=== PATIENT | female | born 1990 | race Caucasian/White ===

== ENCOUNTER → 2017-04-21 | Outpatient (CLI) | payer BC, OTHER | END | disposition home or self-care (01) | LOC: C.LABMFLN 12:15 | PROVIDERS: ATTEND Family Medicine | DX: J02.9 Acute pharyngitis, unspecified (principal) ==

== ENCOUNTER → 2017-06-20 | Outpatient (CLI) | payer OTHER ==
--- NOTE | 2017-06-20 13:56 | DIAGNOSTIC IMAGING REPORT ---
CHEST 2 VIEWS ROUTINE CLINICAL HISTORY: Costochondritis. Right anterior mid rib pain. No trauma. COMPARISON STUDY: No previous studies for comparison. FINDINGS: No pneumothorax or pleural effusion is noted. Cardiac size is normal. Mediastinal contours are normal. Lungs are clear. Pulmonary vascularity is normal. IMPRESSION: No acute cardiopulmonary findings. Electronically signed by: Cj Goldman M.D. 06/20/2017 1:55 PM Dictated Date/Time: 06/20/2017 1:54 PM
--- NOTE | 2017-06-20 13:58 | DIAGNOSTIC IMAGING REPORT ---
R RIBS UNILATERAL MIN 2 VIEWS CLINICAL HISTORY: RIGHT SIDE RIB PAIN COMPARISON STUDY: No previous studies for comparison. FINDINGS: No acute right rib fractures are identified. There is no right pneumothorax. Right lung is clear. IMPRESSION: No acute right rib fractures identified. Electronically signed by: Cj Goldman M.D. 06/20/2017 1:56 PM Dictated Date/Time: 06/20/2017 1:55 PM
== END | disposition home or self-care (01) ==
LOC: C.RAD 12:53
PROVIDERS: ATTEND Physician Assistant
DX: M94.0 Chondrocostal junction syndrome [Tietze] (principal)

== ENCOUNTER 2022-12-12 03:03 | Inpatient (IN) ==
[2022-12-12] MEDS ORDERED: PENICILLIN G POTASSIUM 6 MU in DEXTROSE 5% 250 ML IV STA (03:53)
[2022-12-12] MEDS ORDERED: OXYTOCIN 30 UNITS/500 ML BAG IV PRN ×2 (03:53→06:49)
[2022-12-12] MEDS ORDERED: LIDOCAINE 1% LOCAL 20 ML VIAL INFIL PRN (03:53)
--- NOTE | 2022-12-12 03:56 | History & Physical Report ---
Date of Service December 12, 2022 Assessment & Plan (1) with 38 completed weeks gestation: (2) GBS (group B Streptococcus carrier), +RV culture, currently : (3) PROM (premature rupture of membranes): Plan admit. treat for gbs. patient desires initial expectant management and is renetta. discussed need for augmentation if not making change at 6 hours s/p srom given gbs positive. She expresses understanding. Epidural on demand. fetus category one. anticipate . History of Present Illness Chief Complaint: lof Primary Care Provider: Gail Nath DO Patient is a 32yowf G1 at 38 6/7 weeks who comes in c/o lof. Notes a large gush of clear fluid at 1:30. she noted a copious amount of a more mucousy d/c at 7pm yesterday. no vb. +fm. Feels period like cramps. and Delivery Plans L ovarian cyst on anatomy - Endometrioma -f/u 4 wks, stable, recheck at 32wks OB Labs: Blood Type A Positive 05/22/22 Antibody Screen NEGATIVE 05/22/22 Hemoglobin 11.6 g/dl (12.0-16.0) L 09/29/22 Hematocrit 33.8 % (37.0-47.0) L 09/29/22 Mean Corpuscular Volume 85.1 fL (80.0-100.0) 05/22/22 Platelet Count 198 K/uL (130-400) 05/22/22 Rubella IgG Antibody Immune (Immune) 05/22/22 Rapid Plasma Reagin Nonreactive (Nonreactive) 05/22/22 Hepatitis B Surface Antigen. NON-REACTIVE (NON-REACTIVE) 05/22/22 Hepatitis C Antibody (EIA) NON-REACTIVE (NON-REACTIVE) 05/22/22 HIV (1&2) Ag and Ab Confirmation NON-REACTIVE (NON-REACTIVE) 05/22/22 Glucose 1 Hour 50 gm Load 127 mg/dl (70-130) 09/22/22 OB Optional Labs: Chlamydia trachomatis RNA Not Detected (NotDetected) 05/22/22 Neisseria gonorrhoeae RNA Not Detected (NotDetected) 05/22/22 Labs Reviewed: declines genetics/cf/sma--akh declines msafp/quad--smp gbs positive Allergies Allergy/AdvReac Type Severity Reaction Status Date / Time horse dander Allergy Unknown CONGESTION, Verified 12/12/22 03:58 THROAT CLOSES No Known Drug Allergies Allergy . Verified 12/12/22 03:58 Home Medications Medication Instructions Recorded Confirmed Type albuterol sulfate 90 mcg/actuation 2 puff inhalation Q6H PRN 12/17/18 12/09/22 History aerosol inhaler Shortness Of Breath Or Wheezing cholecalciferol (vitamin D3) 25 25 mcg PO DAILY 07/20/20 12/09/22 History mcg (1,000 unit) tablet (Vitamin D3) prenat.vits,tammy,ahm-owcy-ohsux 1 tab PO DAILY 05/05/22 12/09/22 History Patient History Medical History (Updated 12/12/22 @ 04:00 by Carmel Baeza MD, FACOG) Anxiety Asthma Cardiac arrhythmia Palpitations- last seen by cardio 2016- sxs had improved - pt to follow up PRN Complex ovarian cyst Depression Endometrioma of ovary History of chicken pox IUD contraception Low-lying placenta Migraine HX Surgical History H/O ovarian cystectomy S/P tooth extraction Family History Grandfather (Maternal) Colorectal cancer diagnosed in late 60s Cardiac disease Diabetes Hypertension Myocardial infarction History of open heart surgery Grandmother (Maternal) Diabetes Hypertension Lung cancer Mother Mitral valve prolapse Denies family history of Ovarian cancer Breast cancer Social History Smoking Status: Never smoker Second Hand Exposure: No; Do You Dip or Chew Tobacco: No; Hx Alcohol Use: No Hx Substance Use: No Preferred Language: Israeli Communication Ability: Effective Lion Tamer Required: No Beliefs That Will Affect Care: None marital status: marital status details: Kamar Reyes (31) [phone] Current Living Situation: Spouse Current Living Situation Comment: lives with spouse, no pets current occupational status: employed 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 Other Information That Helps Us Care for You: No Feels Safe at Home: Yes Safety Concerns: Feels Safe At This Time Childhood Exposure to Second-Hand Smoke: No caffeine: Yes Dental Care, Regularly: Yes Physical Activity Frequency: 1-2 Times per Week Seatbelt Use: always Sunscreen Use: Yes Assistive Devices: Contacts and Glasses OB History g1--present THREADING [employer] History noncontributory Physical Exam 2 Constitutional: WD/WN, vitals as above Gastrointestinal (Abdomen): soft, gravid, nt Psychiatric: A+Ox3, euthymic affect Genitourinary: sse--yeast d/c noted, trickle of fluid from the os, small pool, +nitrazine, no fern sve--/50/-2/post toco--4-6min efm--140s with mod variability, accels to 160s, no decels Results & Data Vital Signs (Past 12 Hours) Vital Signs Temp Pulse Resp BP 12/12/22 03:19 18 12/12/22 03:19 36.9 C 18 12/12/22 03:20 85 122/86 Coding Level of Care Code None Diagnoses with 38 completed weeks gestation Z3A.38 GBS (group B Streptococcus carrier), +RV culture, currently O99.820 PROM (premature rupture of membranes) O42.90
[2022-12-12] MEDS: LACTATED RINGER'S 1,000 ML IV PRN ×2 (04:10→15:03)
--- NOTE | 2022-12-12 06:51 | Communication Note ---
Date of Service: December 12, 2022 Patient walking and notes some cramping but nothing exciting. Nursing notes irregular , mild contractions. Will start pitocin. Fetus category one.
[2022-12-12] MEDS: PENICILLIN G POTASSIUM 3 MU in DEXTROSE 5% 100 ML IV PRN ×4 (08:24→21:23)
[2022-12-12 09:18] LABS: Hematocrit (blood only) 36.6 % (37.0-47.0); Mean Corpuscular Hemoglobin 30.9 pg (25.0-34.0); Mean Corpuscular Hgb Conc 35.5 g/dL (32.0-36.0); Mean Corpuscular Volume 86.9 fL (80.0-100.0); RDW Coefficient of Variation 13.3 % (11.5-14.5); RDW Standard Deviation 41.8 fL (36.4-46.3); Red Blood Count 4.21 M/uL (4.20-5.40); White Blood Count 11.06 K/ul (4.8-10.8)
[2022-12-12 09:20] LABS: Mean Platelet Volume 10.7 fL (9.4-12.4); Platelet Count 131 K/uL (130-400)
[2022-12-12] MEDS ORDERED: ePHEDrine sulfate 50 MG/ML AMP ONE (14:10)
[2022-12-12] MEDS ORDERED: BUPIVACAINE 0.25% PF 30 ML VIAL ONE (14:10)
[2022-12-12] MEDS ORDERED: LIDOCAINE 2%/EPINEPHRINE 1:200,000 20 ML PF ONE (14:10)
[2022-12-12] MEDS ORDERED: SODIUM CHLORIDE 0.9% PF INJ 10 ML VIAL ONE (14:10)
[2022-12-12] MEDS ORDERED: fentaNYL citrate PF 100 MCG/2 ML VIAL ONE (14:10)
[2022-12-12] MEDS ORDERED: fentaNYL 2MCG/ML ROPIVACAINE 1.25MG/ML 100 ML BAG EPI ONE (14:11)
[2022-12-12] MEDS ORDERED: ONDANSETRON INJ 2 MG/ML 2 ML VIAL IV PRN (14:52)
[2022-12-12] MEDS ORDERED: NALOXONE HCL 0.4 MG/1 ML VIAL/CARP IV PRN (14:52)
[2022-12-12] MEDS ORDERED: fentaNYL citrate PF 100 MCG/2 ML VIAL EPI PRN (14:52)
[2022-12-12] MEDS ORDERED: BUPIVACAINE 0.25% PF 30 ML VIAL EPI PRN (14:52)
[2022-12-12] MEDS ORDERED: SODIUM CHLORIDE 0.9% PF INJ 10 ML VIAL EPI STA (14:52)
[2022-12-12] MEDS ORDERED: ROPIVACAINE 0.5% PF 5 MG/ML 20 ML VIAL EPI PRN (14:52)
[2022-12-12] MEDS ORDERED: SODIUM CHLORIDE 0.9% PF INJ 10 ML VIAL EPI PRN (14:52)
[2022-12-12] MEDS ORDERED: LIDOCAINE 2% MPF LOCAL 5 ML VIAL EPI PRN (14:52)
[2022-12-12] MEDS ORDERED: LIDOCAINE 2%/EPINEPHRINE 1:200,000 20 ML PF EPI STA (14:52)
[2022-12-12] MEDS ORDERED: fentaNYL citrate PF 100 MCG/2 ML VIAL EPI STA (14:52)
[2022-12-12] MEDS ORDERED: BUPIVACAINE 0.25% PF 30 ML VIAL EPI STA (14:52)
[2022-12-12] MEDS ORDERED: NALOXONE HCL 1 MG in SODIUM CHLORIDE 0.9% 1000ML 1,000 ML IV PRN (14:52)
[2022-12-12] MEDS ORDERED: ePHEDrine sulfate 50 MG/ML AMP IV PRN (14:52)
[2022-12-12] MEDS ORDERED: diphenhydrAMINE 50 MG/ML VIAL IV PRN (14:52)
[2022-12-12] MEDS ORDERED: NALBUPHINE HCL INJ 10 MG/ML AMP IV PRN (14:52)
--- NOTE | 2022-12-12 14:53 | Anesthesiology Consultation ---
Date of Service December 12, 2022 Assessment & Plan Chart Review Chart Review: Patient NOT seen in Pre Admission Testing and Acceptable Risk for Labor Epidural Consults Requested none ASA ASA2 Proposed Anesthesia Anesthesia Type: Labor Epidural Risk / Benefits Reviewed With: PT / POA / Parent / Guardian, Accepts Plan and Informed Consent Obtained History Height/Weight Height: 5 ft 5 in Weight: 74.843 kg Allergies Allergy/AdvReac Type Severity Reaction Status Date / Time horse dander Allergy Unknown CONGESTION, Verified 12/12/22 03:58 THROAT CLOSES No Known Drug Allergies Allergy . Verified 12/12/22 03:58 Medications Home Medications Medication Instructions Recorded Confirmed Last Taken albuterol sulfate 90 mcg/actuation 2 puff inhalation Q6H PRN 12/17/18 12/09/22 Unknown aerosol inhaler Shortness Of Breath Or Wheezing cholecalciferol (vitamin D3) 25 25 mcg PO DAILY 07/20/20 12/09/22 3 Days Ago mcg (1,000 unit) tablet (Vitamin ~07/17/20 D3) prenat.vits,tammy,xtm-oqid-xlnxp 1 tab PO DAILY 05/05/22 12/09/22 12/08/22 12:00 Active Medications Generic Name Dose Route Start Last Admin Trade Name Freq PRN Reason Stop Dose Admin Lactated Ringer's 1,000 mls @ 125 mls/hr 12/12/22 03:53 12/12/22 08:25 Lr IV 12/14/22 03:52 125 mls/hr .Q8H PRN Infusion L&D Protocol Protocol Penicillin G Potassium 3 mu/ 106 mls @ 100 mls/hr 12/12/22 06:54 12/12/22 13:05 Dextrose IV 12/22/22 06:53 100 mls/hr Q4H PRN Administration GBS(+) Until Delivery Oxytocin 30 units in 500 mls @ 10 mls/hr 12/12/22 06:49 12/12/22 10:30 Pitocin IV 12/14/22 06:48 0.6 units/hr .Q24H PRN 10 mls/hr Labor Induction/Augmentation Titration Protocol 0.6 UNITS/HR Past Medical History Medical History (Updated 12/12/22 @ 04:00 by Carmel Baeza MD, FACOG) Anxiety Asthma Cardiac arrhythmia Palpitations- last seen by cardio 2017- sxs had improved - pt to follow up PRN Complex ovarian cyst Depression Endometrioma of ovary History of chicken pox IUD contraception Low-lying placenta Migraine HX Exercise / Class Metabolic Activity II 4-5 Yardwork/Stairs/Walk up hill Past Family History Family History Grandfather (Maternal) Colorectal cancer diagnosed in late 60s Cardiac disease Diabetes Hypertension Myocardial infarction History of open heart surgery Grandmother (Maternal) Diabetes Hypertension Lung cancer Mother Mitral valve prolapse Denies family history of Ovarian cancer Breast cancer Past Surgical History Surgical History H/O ovarian cystectomy S/P tooth extraction Past Anesthesia History No Hx of Anesthesia Complications and No Family Hx of Anesthesia Complications History of PONV No Hx of PONV and No Hx of Motion Sickness Social History Smoking Status: Never smoker Do You Dip or Chew Tobacco: No Hx Alcohol Use: No Alcohol type: wine alcohol intake frequency: a few times a month Hx Substance Use: No Physical Exam Vital Signs Last Vital Signs Temp 36.5 C 12/12/22 13:36 Pulse 83 12/12/22 14:37 Resp 20 12/12/22 13:36 BP 124/79 12/12/22 14:37 ENMT Mouth: no dentition abnormality Thyromental Distance: > or= 3.5 Finger Breadths Mallampati Class: II Neck normal visual inspection Respiratory normal respiratory effort Auscultation: lungs clear to auscultation bilaterally Cardiovascular Rate/Rhythm: regular rate and regular rhythm Psychiatric Orientation: alert Testing Laboratory Results 12/12/22 04:55
[2022-12-12] MEDS: fentaNYL 2MCG/ML ROPIVACAINE 1.25MG/ML 100 ML BAG EPI PRN (23:13)
[2022-12-13] MEDS: PENICILLIN G POTASSIUM 3 MU in DEXTROSE 5% 100 ML IV PRN ×4 (00:37→12:46)
[2022-12-13] MEDS: LACTATED RINGER'S 1,000 ML IV PRN ×2 (00:38→06:48)
[2022-12-13] MEDS: fentaNYL 2MCG/ML ROPIVACAINE 1.25MG/ML 100 ML BAG EPI PRN ×2 (06:20→11:31)
--- NOTE | 2022-12-13 07:24 | Labor Progress Brief Note ---
Date of Service December 13, 2022 Subjective Patient continued slow but steady change overnight. Comfortable with epidural. Ongoing LOF. Desires continuation of augmentation/labor process. Assessment & Plan (1) PROM (premature rupture of membranes): Plan: Discussed placement of IUPC and increase of pitocin ceiling, vs continued augmentation at max level of 20mu/min. She is making change (albeit slow) and would prefer to continue without IUPC for now. Could also consider a pitocin holiday to desaturate receptors; approaching 24 hours of pitocin within the next few hours. Admission and Anticipated Discharge Date Admission Date: December 12, 2022 Physical Exam Genitourinary: /0, vertex No significant cervical or labial edema, pelvis feels adequate Pit @ 20 LOF continues, clear FHT Cat 1 [place] Q2-3. Results & Data Vital Signs (Past 12 Hours) Vital Signs Temp Pulse Resp BP Pulse Ox 12/13/22 07:17 77 118/80 99 12/13/22 07:12 78 97 12/13/22 07:07 78 99 12/13/22 07:02 82 113/67 97 12/13/22 06:57 69 98 12/13/22 06:52 74 97 12/13/22 06:47 74 98 12/13/22 06:46 76 108/68 12/13/22 06:42 83 98 12/13/22 06:37 88 98 12/13/22 06:32 80 99 12/13/22 06:31 78 123/80 12/13/22 06:16 18 12/13/22 06:16 98.2 F 18 12/13/22 06:27 80 99 12/13/22 06:22 80 98 12/13/22 06:17 99 12/13/22 06:17 76 12/13/22 06:17 82 121/79 12/13/22 06:12 73 98 12/13/22 06:07 78 98 12/13/22 06:02 76 99 12/13/22 06:03 76 117/80 12/13/22 05:57 91 H 98 12/13/22 05:52 77 98 12/13/22 05:47 70 98 12/13/22 05:46 76 127/75 12/13/22 05:42 70 99 12/13/22 05:37 79 100 12/13/22 05:32 100 12/13/22 05:32 76 07 05:32 75 107/66 12/13/22 05:27 89 100 12/13/22 05:22 82 100 12/13/22 05:17 105 H 116/66 98 12/13/22 05:12 91 H 99 12/13/22 05:07 77 98 12/13/22 05:02 81 98 12/13/22 05:01 85 108/67 12/13/22 04:57 89 97 12/13/22 04:52 68 95 12/13/22 04:47 68 96 12/13/22 04:46 67 101/58 L 12/13/22 04:42 82 97 12/13/22 04:37 74 98 12/13/22 04:32 79 96 12/13/22 04:33 84 114/68 12/13/22 04:27 98.1 F 80 16 98 12/13/22 04:22 86 98 12/13/22 04:17 78 97 12/13/22 04:16 74 110/65 12/13/22 04:12 76 97 12/13/22 04:07 67 97 12/13/22 04:02 72 97 12/13/22 04:01 67 103/64 12/13/22 02:35 18 12/13/22 02:35 98.2 F 18 12/13/22 03:57 69 97 12/13/22 03:52 74 98 12/13/22 03:47 85 98 12/13/22 03:46 68 100/66 12/13/22 03:42 90 98 12/13/22 03:37 78 97 12/13/22 03:32 98 12/13/22 03:32 81 12/13/22 03:32 78 113/67 12/13/22 03:27 71 97 12/13/22 03:22 72 98 12/13/22 03:17 85 99 12/13/22 03:16 75 106/65 12/13/22 03:12 73 98 12/13/22 03:07 85 98 12/13/22 03:02 96 H 98 12/13/22 03:01 94 H 128/80 12/13/22 02:57 96 H 98 12/13/22 02:52 88 97 12/13/22 02:47 89 98 12/13/22 02:46 89 109/76 12/13/22 02:42 97 H 98 12/13/22 02:35 18 12/13/22 02:35 98.2 F 18 12/13/22 02:37 94 H 97 12/13/22 02:32 92 H 136/77 97 12/13/22 02:27 87 97 12/13/22 02:22 98 H 96 12/13/22 02:17 80 96 12/13/22 02:16 76 104/55 L 12/13/22 02:12 78 96 12/13/22 02:07 87 97 12/13/22 02:02 73 108/57 L 96 12/13/22 01:57 82 97 12/13/22 01:52 75 96 12/13/22 01:47 74 96 12/13/22 01:48 72 104/59 L 12/13/22 01:42 80 97 12/13/22 01:37 101 H 98 12/13/22 01:32 89 98 12/13/22 01:31 84 106/60 12/13/22 01:27 96 H 97 12/13/22 01:22 91 H 96 12/13/22 01:17 85 96 12/13/22 01:16 92 H 97/57 L 12/13/22 01:12 83 94 12/13/22 01:07 85 96 12/13/22 01:02 77 96 12/13/22 01:01 84 100/60 94 12/13/22 00:57 96 H 97 12/13/22 00:52 87 97 12/13/22 00:36 18 12/13/22 00:36 98.6 F 18 12/13/22 00:47 84 97 12/13/22 00:46 85 94/58 L 12/13/22 00:42 83 97 12/13/22 00:37 82 98 12/13/22 00:32 87 96 12/13/22 00:33 85 97/61 L 12/13/22 00:27 71 97 12/13/22 00:22 75 96 12/13/22 00:17 76 97 12/13/22 00:16 87 108/61 12/13/22 00:12 76 97 12/13/22 00:07 77 97 12/13/22 00:02 83 96 12/13/22 00:01 91 H 108/62 12/12/22 23:57 87 97 12/12/22 23:52 94 H 98 12/12/22 23:47 74 96 12/12/22 23:46 82 102/59 L 12/12/22 23:42 79 96 12/12/22 23:37 81 97 12/12/22 23:32 96 12/12/22 23:32 76 12/12/22 23:32 78 106/56 L 12/12/22 23:27 71 97 12/12/22 23:22 77 97 12/12/22 23:17 79 97 12/12/22 23:16 77 106/60 12/12/22 23:12 77 96 12/12/22 23:07 80 96 12/12/22 23:02 81 97 12/12/22 22:59 18 12/12/22 22:59 98.2 F 18 12/12/22 23:01 81 110/60 12/12/22 22:57 79 96 12/12/22 22:52 90 96 12/12/22 22:47 90 120/70 97 12/12/22 22:42 99 H 97 12/12/22 22:37 88 97 12/12/22 22:32 88 97 12/12/22 22:31 100 H 112/78 12/12/22 22:27 104 H 97 12/12/22 22:22 98 H 97 12/12/22 22:17 95 H 97 12/12/22 22:16 81 16 106/62 12/12/22 22:12 92 H 97 12/12/22 22:07 92 H 96 12/12/22 22:02 97 H 96 12/12/22 22:01 91 H 104/55 L 94 12/12/22 21:57 97 H 96 12/12/22 21:52 92 H 97 12/12/22 21:47 91 H 98 12/12/22 21:46 86 102/59 L 12/12/22 21:42 92 H 97 12/12/22 21:37 86 97 12/12/22 21:32 85 97 12/12/22 21:31 93 H 106/56 L 12/12/22 21:27 90 97 12/12/22 21:22 92 H 98 12/12/22 21:17 98 12/12/22 21:17 87 12/12/22 21:17 87 101/59 L 12/12/22 21:12 87 98 12/12/22 21:03 18 12/12/22 21:03 98.2 F 18 12/12/22 21:07 95 H 97 12/12/22 21:02 90 97 12/12/22 21:01 86 96/55 L 12/12/22 20:57 78 97 12/12/22 20:52 85 97 12/12/22 20:47 78 97 12/12/22 20:46 75 101/59 L 12/12/22 20:42 75 98 12/12/22 20:37 70 96 12/12/22 20:32 82 97 12/12/22 20:31 71 99/58 L 12/12/22 20:27 79 98 12/12/22 20:22 75 97 12/12/22 20:17 73 97 12/12/22 20:16 71 98/57 L 12/12/22 20:12 87 97 12/12/22 20:07 82 97 12/12/22 20:02 85 98 12/12/22 20:01 90 104/62 12/12/22 19:57 87 97 12/12/22 19:52 90 96 12/12/22 19:47 83 100/58 L 97 12/12/22 19:42 86 98 12/12/22 19:37 82 98 12/12/22 19:32 98 12/12/22 19:32 86 12/12/22 19:32 84 102/61 12/12/22 19:27 87 97 12/12/22 19:22 89 97 Coding Level of Care Code None Diagnoses PROM (premature rupture of membranes) O42.90
[2022-12-13] MEDS ORDERED: BENZOCAINE 20% SPRY 85 APPLN/85 GM CAN EXT PRN (14:58)
[2022-12-13] MEDS ORDERED: miSOPROStoL 200 MCG TAB PR ONE (14:58)
[2022-12-13] MEDS ORDERED: bisacodyL 10 MG SUPP PR PRN (14:58)
[2022-12-13] MEDS ORDERED: OXYTOCIN 30 UNITS/500 ML BAG IV PRN (14:58)
[2022-12-13] MEDS ORDERED: DIPHTHERIA/TETANUS/PERTUSSIS Vaccine (Tdap, Age 7+yrs) 0.5mL SYR/VL IM ONE (14:58)
[2022-12-13] MEDS ORDERED: HYDROCORTISONE ACETATE 25 MG SUPP PR PRN (14:58)
[2022-12-13 15:04] LABS: Base Excess Cord Venous Blood -13.7 mEq/L (-7.7-1.9); Cord Venous Blood HCO3 17 mmol/L (18.4-26.8); Cord Venous Blood PCO2 58 mmHg (30.4-57.2); Cord Venous Blood PO2 20 mmHg (14.1-43.3); Cord Venous Blood pH 7.07 (7.20-7.44); O2 Saturation Cord Venous Bld < 60.0 % (<68)
[2022-12-13 15:05] LABS: CO2 Cord Arterial Blood 81 mmHg (39.1-73.5); Oxygen Sat Cord Arterial Blood < 60.0 % (<60); PO2 Cord Arterial Blood 9 mmHg (4.1-31.7); pH Cord Arterial Blood < 7.00 (7.1-7.38)
--- NOTE | 2022-12-13 15:06 | Delivery Summary ---
Vaginal Delivery Summary Date of Service December 13, 2022 Vaginal Delivery Summary [facility] Surgeon Dr. Antwon Rodríguez [facility] Vaginal Delivery Charge Delivery Type Details: Procedure Intrapartal events: Prolonged Labor > 20 hours Induction method: per pitocin protocol Delivery augmentation: pitocin Delivery monitor: external FHT and external uterine Route of delivery: Laceration description: Perineal - 2nd Degree Delivery repair: vicryl Estimated blood loss (mL): 300 Anesthesia type: Epidural Complications: None Narrative: Delivery summary: Patient progressed to 10 cm dilated 100% effaced +1-2 station pushed over intact perineum with epidural anesthesia. Patient pushed for approximately 2-1/2 hours to achieve delivery. Had the delivered asynclitic position. A double loose nuchal cord was noted which was easily reduced. Body and shoulders quickly followed. was noted to be limp on delivery and the cord was doubly clamped and cut with taken to the waiting nursery staff for evaluation. Cord segment and cord blood were obtained. Attention was turned to deliver the placenta was delivered intact with 3 vessel cord with gentle cord traction. Second-degree perineal laceration was noted and was repaired with traditional crown stitch using 3-0 Vicryl. Labor Stage Duration Labor - Stage 1 Duration: 17.11 Labor - Stage 2 Duration: 2.78
[2022-12-13] MEDS: IBUPROFEN 600 MG TAB PO PRN ×2 (16:00→20:54)
--- NOTE | 2022-12-13 16:11 | Anesthesia Procedure Note ---
Date of Service December 13, 2022 Anesthesia Post Epidural Note Vital Signs Vital Signs: Temp Pulse Resp BP Pulse Ox 37.0 C 85 20 124/76 93 12/13/22 15:51 12/13/22 16:07 12/13/22 11:10 12/13/22 16:07 12/13/22 14:02 Pain Intensity Lower Medial Abdomen: Pain Intensity: 2 Notes Mental Status: alert / awake / arousable Nausea / Vomiting: adequately controlled Pain: adequately controlled Airway Patency, RR, SpO2: stable & adequate BP & HR: stable & adequate Hydration State: stable & adequate Neuraxial Anesthesia: was administered and sensory block is resolving Anesthetic Complications: no major complications apparent and Pt Satisfied with anesthetic care Epidural: Removed without complications and With tip intact
[2022-12-13] MEDS: ACETAMINOPHEN 325 MG TAB PO PRN ×2 (19:01→22:32)
[2022-12-13] MEDS: DOCUSATE SODIUM 100 MG CAP PO SCH (20:57)
[2022-12-14] MEDS: IBUPROFEN 600 MG TAB PO PRN ×6 (00:35→21:54)
[2022-12-14] MEDS: ACETAMINOPHEN 325 MG TAB PO PRN ×4 (04:05→23:51)
[2022-12-14 05:55] LABS: Hematocrit (blood only) 27.3 % (37.0-47.0); Hemoglobin 9.3 g/dl (12.0-16.0); Mean Corpuscular Hemoglobin 30.1 pg (25.0-34.0); Mean Corpuscular Hgb Conc 34.1 g/dL (32.0-36.0); Mean Corpuscular Volume 88.3 fL (80.0-100.0); Mean Platelet Volume 10.8 fL (9.4-12.4); Platelet Count 110 K/uL (130-400); RDW Coefficient of Variation 13.4 % (11.5-14.5); RDW Standard Deviation 42.8 fL (36.4-46.3); Red Blood Count 3.09 M/uL (4.20-5.40); White Blood Count 13.38 K/ul (4.8-10.8)
--- NOTE | 2022-12-14 08:35 | Obstetrical Progress Note ---
Date of Service December 14, 2022 Assessment & Plan (1) Encounter for care and examination after delivery: Day 1 status post vaginal delivery. Patient doing well. Routine care Subjective Ambulation: ambulating normally Voiding: no voiding problems Passing Gas:: Yes Diet Tolerance:: regular diet Lochia:: Moderate Feeding Type:: breast feeding Physical Exam Constitutional WD/WN, vitals as above Respiratory normal respiratory effort; no respiratory distress and no labored breathing Gastrointestinal (Abdomen) Inspection/Auscultation: abdomen normal to inspection; abdomen not distended Percussion/Palpation: abdomen soft; abdomen nontender, no guarding and abdomen not rigid Genitourinary OB Exam Abdomen: + fundal height Fundus: + firm and + relation to umbilicus (Below); not tender or not boggy Results & Data Vital Signs (Past 12 Hours) Vital Signs Temp Pulse Resp BP Pulse Ox O2 Del Method 12/14/22 07:25 36.4 C L 70 18 109/67 97 Room Air 12/14/22 03:55 36.3 C L 67 18 117/76 98 Room Air 12/14/22 00:25 36.7 C 74 20 107/72 97 Room Air
[2022-12-14] MEDS: DOCUSATE SODIUM 100 MG CAP PO SCH ×2 (08:37→21:54)
[2022-12-14] MEDS: PRENATAL VITAMIN 1 TAB PO SCH (08:37)
[2022-12-14] MEDS: FERROUS SULFATE 325 MG TAB PO SCH (08:37)
[2022-12-14] MEDS ORDERED: bisacodyL 5 MG TABEC PO SCH (20:00)
--- NOTE | 2022-12-15 06:44 | Obstetrical Progress Note ---
Date of Service <Meghana Carr MD - Last Filed: 12/15/22 07:32> December 15, 2022 Assessment & Plan <Meghana Carr MD - Last Filed: 12/15/22 07:32> (1) Encounter for care and examination after delivery: Patient with the above mentioned history and findings was evaluated at bedside and found clinically and hemodynamically stable, afebrile, awake, alert, oriented x3, and in no acute distress. Overall she seems stable and is fit to go home today. She was advised that her left extremity numbness may be associated to her prolonged positioning during labor and should resolve spontaneously with time. Discharge instructions were discussed. Her pain will be managed with Tylenol, Advil, Ibuprofen, or Motrin PRN. She was advised to call and notify the office should she experience fevers or significant pain on her abdomen. She is to call to schedule and appointment with her OB for 6 weeks after discharge for her follow up evaluation. All questions were answered. <Antwon Rodríguez MD - Last Filed: 12/15/22 08:32> (1) Encounter for care and examination after delivery: Subjective <Meghana Carr MD - Last Filed: 12/15/22 07:32> is a 32 y/o female who is now PPD # 2 following at 39 0/7 weeks. Reports feeling well overall this morning. Refers mild to moderate abdominal cramping & 2/10 pain well managed on analgesics. Voiding spontaneously without issues. Tolerating meals overnight and able to ambulate some. She is passing gas but has not had a bowel movement yet. Some persistent lochia with some improvement this morning. Currently breast feeding. Her blood type is A positive and her most recent hemoglobin was 8.9. Her serology was positive for GBS which was treated during labor, and she is rubella immune. Constitutional: no fever, no chills or no sweats Denies shortness of breath or difficulty breathing Cardiovascular: no chest pain or no palpitations Breast: no breast pain Genitourinary (female): no dysuria Neurologic: no headache(s) Denies changes in vision Physical Exam <Meghana Carr MD - Last Filed: 12/15/22 07:32> General: Alert. Oriented to person, time, and place. Afebrile. No acute distress. Eyes: pupils equal and reactive to light bilaterally, extraocular movements intact. Cardiac: Regular rate and rhythm, no murmurs/rubs/gallops. Respiratory: Clear to auscultation bilaterally a/p, no wheezes/rales/rhonchi. No increased work of breathing. Symmetrical chest rise. No respiratory distress. Abdomen: Soft, nontender, nondistended. Bowel sounds present. Uterus: Uterine fundus firm, non-tender, and palpable below umbilicus. Lower Extremities: No lower extremity edema or swelling. No deep calf pain. Sally's negative bilaterally. Psych: Euthymic affect. Mood and affect congruence. Regular speech rate and content. Results & Data <Meghana Carr MD - Last Filed: 12/15/22 07:32> Vital Signs (Past 12 Hours) Vital Signs Temp Pulse Resp BP Pulse Ox O2 Del Method 12/14/22 23:50 36.4 C L 67 18 105/71 97 Room Air 12/14/22 19:10 36.4 C L 82 16 113/71 98 Room Air <Antwon Rodríguez MD - Last Filed: 12/15/22 08:32> Co-Signing Physician Notes Patient seen with resident and agree with the above findings and plan. Stable for discharge Resident Activity Tracking <Meghana Carr MD - Last Filed: 12/15/22 07:32> Resident Involvement: Resident Care Provided Care Provided: OB Delivery
[2022-12-15 06:52] LABS: Hemoglobin 8.9 g/dl (12.0-16.0)
[2022-12-15] MEDS: FERROUS SULFATE 325 MG TAB PO SCH (07:21)
[2022-12-15] MEDS: PRENATAL VITAMIN 1 TAB PO SCH (07:21)
[2022-12-15] MEDS: DOCUSATE SODIUM 100 MG CAP PO SCH (07:21)
[2022-12-15] MEDS: IBUPROFEN 600 MG TAB PO PRN (07:22)
== END 2022-12-15 11:55 | disposition home or self-care (01) | DRG 807 ==
LOC: OPB 03:03 → 4S1 03:04 → 4E2 12-13 18:44